=== PATIENT | female | born 1990 | race Caucasian/White ===

== ENCOUNTER → 2023-04-08 | Outpatient (CLI) | payer BC, SELFPAY ==
[2023-04-08 10:08] LABS: hCG Titer Quant., Serum 717 mIU/mL (1-3)
== END | disposition home or self-care (01) ==
LOC: LAB 09:16
PROVIDERS: Referring Provider Registered Nurse; Visit Provider Registered Nurse
DX: N91.2 Amenorrhea, unspecified (principal)
CPT/HCPCS: 36415; 84702

== ENCOUNTER → 2023-04-10 | Outpatient (CLI) | payer BC, SELFPAY ==
[2023-04-10 12:42] LABS: hCG Titer Quant., Serum 1433 mIU/mL (1-3)
== END | disposition home or self-care (01) ==
LOC: LAB 10:52
PROVIDERS: Referring Provider Registered Nurse; Visit Provider Registered Nurse
DX: N91.2 Amenorrhea, unspecified (principal)
CPT/HCPCS: 36415; 84702

== ENCOUNTER → 2023-04-18 | Outpatient (CLI) | payer BC, SELFPAY ==
--- NOTE | 2023-04-18 08:45 | US_ITS ---
STUDY: FIRST TRIMESTER OBSTETRICAL ULTRASOUND REASON FOR EXAM: Female, 32 years old VIABILITY LMP: 03/06/2023 TECHNIQUE: Transvaginal TECHNICAL QUALITY: Adequate. PRIOR ULTRASOUND: None. FINDINGS: There is visualization of a single gestational sac in a normal intrauterine position. The mean sac diameter (MSD) measures 13 mm, indicating an estimated gestational age (EGA) of 6 weeks, 1 days. The gestational sac shape is within normal limits. Hypoechoic areas adjacent to gestational sac consistent with subchorionic hemorrhage (implantation bleed (. There is a visualized yolk sac. The yolk sac measures 3 mm. The placenta is non-visualized. There is visualization of a live embryo. The crown-rump length (CRL) measures 3 mm, indicating an estimated gestational age (EGA) of 6 weeks, 1 days. There is demonstrated cardiac activity with a heart rate of 1:15 bpm. The estimated gestation age (EGA) by LMP is 6 weeks, 1 days. The estimated date of delivery (SALBADOR) by LMP is 12/11/2023. The estimated gestation age (EGA) by US is 6 weeks, 1 days. The estimated date of delivery (SALBADOR) by US is 12/11/2023. The uterus measures 9.5 x 5.4 x 6.8 cm. There is no demonstrated uterine fibroid. The cervix is closed. The right ovary measures 6.5 x 3.9 x 3.2. 3.3 cm oval anechoic mass with increasing transmission of the right ovary consistent with a theca lutein cyst. There is no visualized right adnexal mass or complex lesion. The left ovary measures 2.6 x 2.0 x 1.2. There is no left ovarian cyst. There is no visualized left adnexal mass or complex lesion. There is no fluid in the cul de sac. US/Transvaginal w/Preg US IMPRESSION: Living intrauterine of 6 weeks 1 day as described above. Small subchorionic hemorrhages (implantation bleed). 3.3 cm right ovarian theca lutein cyst. Electronically Signed: Dale Navarro MD at 22:42 EST ,
== END | disposition home or self-care (01) ==
LOC: US 08:43
PROVIDERS: Referring Provider Registered Nurse; Visit Provider Registered Nurse
DX: O36.80X0 Pregnancy with inconclusive fetal viability, not applicable or unspecified (principal); Z87.59 Personal history of other complications of pregnancy, childbirth and the puerperium; Z3A.00 Weeks of gestation of pregnancy not specified
CPT/HCPCS: 76817

== ENCOUNTER → 2023-05-07 | Outpatient (CLI) | payer BC, SELFPAY ==
[2023-05-11 07:07] LABS: Chlamydia By Nucleic Acid AMP Negative (Negative); Gonococcus By Nucleic Acid AMP Negative (Negative)
== END | disposition home or self-care (01) ==
LOC: LABSPEC 15:40
PROVIDERS: Referring Provider Registered Nurse; Visit Provider Registered Nurse
DX: Z34.90 Encounter for supervision of normal pregnancy, unspecified, unspecified trimester (principal); Z3A.00 Weeks of gestation of pregnancy not specified
CPT/HCPCS: 87077; 87086; 87088; 87186; 87491; 87591

== ENCOUNTER → 2023-06-11 | Outpatient (CLI) | payer BC, SELFPAY ==
[2023-06-11 11:30] LABS: Absolute Lymphocyte Count 2.67 X10^3/uL (0.83-4.51); Absolute Neutrophil Count 6.2 X10^3/uL (2.0-7.7); Basophil# 0.04 X10^3/uL; Basophil% 0.4 % (0-1); Eosinophil# 0.12 X10^3/uL; Eosinophils% 1.2 % (0-5); Hemoglobin 13.1 g/dL (12.0-15.0); Lymphocyte # 2.67 X10^3/ul (0.83-4.51); Lymphocyte % 27.7 % (19-41); Mean Corp Hgb Conc 33.6 g/dL (32-36); Mean Corpuscular Hgb 28.4 pg (27.0-32.0); Mean Corpuscular Volume 84.4 fL (81-99); Mean Platelet Vol. 10.8 fl (6.2-12.0); Monocyte# 0.56 X10^3/uL; Monocyte% 5.8 % (0-10); NRBC Flagged by Analyzer 0 % (0-5); Neutrophil # 6.21 X10^3/uL (2.7-7.7); Neutrophil % 64.6 % (47-70); Platelet Count 285 K/mm3 (150-450); RBC Distribution Width CV 12.2 % (11.6-14.6); RBC Distribution Width SD 36.8 fl (35.1-43.9); Red Blood Count 4.62 M/mm3 (4.2-5.4); White Blood Count 9.6 K/mm3 (4.4-11.0)
[2023-06-11 13:13] LABS: HIV - WCH Non-Reactive (Nonreactive); Hepatitis B Surface Antigen Non-Reactive (Nonreactive); Hepatitis C Antibody Non-Reactive (Nonreactive); Rubella IgG Reactive (Nonreactive); Syphilis Antibodies Non-reactive
[2023-06-12 06:08] LABS: V-Zoster IgG (Immunity) 1816 index (Immune >165)
== END | disposition home or self-care (01) ==
PROVIDERS: Referring Provider Registered Nurse; Visit Provider Registered Nurse
DX: Z34.90 Encounter for supervision of normal pregnancy, unspecified, unspecified trimester (principal); Z78.9 Other specified health status; Z3A.00 Weeks of gestation of pregnancy not specified
CPT/HCPCS: 36415; 85025; 86703; 86762; 86780; 86787; 86803; 86850; 86900; 86901; 87340

== ENCOUNTER → 2023-09-12 | Outpatient (CLI) | payer BC, SELFPAY ==
[2023-09-12 12:29] LABS: Absolute Lymphocyte Count 1.99 X10^3/uL (0.83-4.51); Absolute Neutrophil Count 5.6 X10^3/uL (2.0-7.7); Basophil# 0.03 X10^3/uL; Basophil% 0.4 % (0-1); Eosinophil# 0.09 X10^3/uL; Eosinophils% 1.1 % (0-5); Hematocrit 38.2 % (37-47); Hemoglobin 12.7 g/dL (12.0-15.0); Lymphocyte # 1.99 X10^3/ul (0.83-4.51); Lymphocyte % 24.2 % (19-41); Mean Corp Hgb Conc 33.2 g/dL (32-36); Mean Corpuscular Volume 87.2 fL (81-99); Mean Platelet Vol. 10.5 fl (6.2-12.0); Monocyte# 0.44 X10^3/uL; Monocyte% 5.4 % (0-10); NRBC Flagged by Analyzer 0 % (0-5); Neutrophil # 5.62 X10^3/uL (2.7-7.7); Neutrophil % 68.3 % (47-70); Platelet Count 239 K/mm3 (150-450); RBC Distribution Width CV 13.2 % (11.6-14.6); RBC Distribution Width SD 41.3 fl (35.1-43.9); Red Blood Count 4.38 M/mm3 (4.2-5.4); White Blood Count 8.2 K/mm3 (4.4-11.0)
[2023-09-12 13:26] LABS: HIV - WCH Non-Reactive (Nonreactive); Syphilis Antibodies Non-reactive
[2023-09-12 13:29] LABS: Glucose Challenge Gest 1H 50g 139 mg/dL (70-140)
== END | disposition home or self-care (01) ==
LOC: LAB 11:35
PROVIDERS: Referring Provider Obstetrics & Gynecology; Visit Provider Obstetrics & Gynecology
DX: O09.90 Supervision of high risk pregnancy, unspecified, unspecified trimester (principal); Z13.1 Encounter for screening for diabetes mellitus; Z3A.00 Weeks of gestation of pregnancy not specified
CPT/HCPCS: 36415; 82950; 85025; 86703; 86780

== ENCOUNTER → 2023-09-29 | Outpatient (CLI) | payer BC, SELFPAY ==
[2023-09-29 07:41] LABS: Glucose GTT-Gestation. Fasting 90 mg/dL (<105)
[2023-09-29 09:13] LABS: Glucose GTT-Gestational 1 Hr 195 mg/dL (<190)
[2023-09-29 10:13] LABS: Glucose GTT-Gestational 2 Hr 175 mg/dL (<165)
[2023-09-29 10:37] LABS: Glucose GTT-Gestational 3 Hr 97 L (<145)
== END | disposition home or self-care (01) ==
LOC: LAB 06:55
PROVIDERS: Referring Provider Obstetrics & Gynecology; Visit Provider Obstetrics & Gynecology
DX: Z13.1 Encounter for screening for diabetes mellitus (principal)
CPT/HCPCS: 36415; 82951; 82952

== ENCOUNTER → 2023-10-17 | Outpatient (CLI) | payer BC, SELFPAY ==
--- NOTE | 2023-10-17 09:43 | US_ITS ---
INDICATION: wellbeing, placental lakes, 32 Weeks EXAMINATION: Ultrasound US OB Follow-Up TECHNIQUE: Transabdominal pelvic ultrasound was performed with grayscale color flow and M-mode Doppler. COMPARISON: None. LMP: March 06, 2023 correlating with 32 weeks 1 day gestation and estimated delivery date December 11, 2023. FINDINGS: Single live intrauterine with heart rate 145 bpm. Current cephalic presentation. Placenta fundal, grade 3 with numerous placental lakes of variable size. No evidence of abruption or previa. YAMILE 18.3 cm with deepest vertical pocket 6.0 cm. Biparietal diameter 8.0 cm 32 weeks 2 days Head circumference 29.5 cm 32 weeks 4 days Abdominal circumference 27.9 cm 32 weeks 0 days Femur length 6.0 cm 31 weeks 3 days Composite ultrasound age 32 weeks 0 days correlating with December 12, 2023 delivery date Estimated weight 1862 g +/- 279 g US/OB Limited With Biometrics IMPRESSION: Single live intrauterine with normal heart rate. Fundal grade 3 placenta with multiple placental lakes. Electronically Signed: Allen Castellanos MD at 22:52 EDT Reading Location ID and State: [facility] / [place] Tel , Service support ,
== END | disposition home or self-care (01) ==
PROVIDERS: Referring Provider Nurse Practitioner Women's Health; Visit Provider Nurse Practitioner Women's Health
DX: O43.109 Malformation of placenta, unspecified, unspecified trimester (principal); Z3A.00 Weeks of gestation of pregnancy not specified
CPT/HCPCS: 76816

== ENCOUNTER → 2023-11-14 | Outpatient (CLI) | payer BC, SELFPAY ==
--- NOTE | 2023-11-14 09:42 | US_ITS ---
STUDY: SECOND AND THIRD TRIMESTER OBSTETRICAL ULTRASOUND REASON FOR EXAM: Female, 32 years old wellbeing, placental lakes, 36 Weeks LMP: March 06, 2023. TECHNIQUE: Transabdominal TECHNICAL QUALITY: Adequate. PRIOR ULTRASOUND: Comparison is made with prior examination dated October 17, 2023. FINDINGS: There is a single intrauterine fetus. The fetus is in a cephalic presentation. There is demonstrated cardiac activity with a heart rate of 152 bpm. There is a normal amniotic fluid volume. The largest amniotic fluid pocket measures 6.3 cm. The amniotic fluid index (YAMILE) is 15.1 cm. The placenta is fundal in location. There are Grade 2 placental changes. The cervix was not measured due to the head position.. The adnexal regions are not visualized. BIOMETRY: BPD: 8.81 cm: 35 weeks, 4 days HC: 32.15 cm: 36 weeks, 2 days AC: 31.68 cm: 35 weeks, 4 days FL: 6.69 cm: 34 weeks, 3 days CI: 79.4% FL/BPD: 75.9% FL/HC: FL/AC: 21.1% HC/AC: 1.02 age by current US: 35 weeks, 4 days. SALBADOR by current US: December 15, 2023. Estimated weight: 2670 grams, +/- 400 grams, 32 %. age by prior US: 36 weeks, 0 days. SALBADOR by prior US: December 12, 2023. Age by LMP: 36 weeks, 1 days. SALBADOR by LMP: December 11, 2023. US/OB Limited With Biometrics IMPRESSION: Single live intrauterine gestation with a mean gestational age of 35 weeks and 4 days. The measurements obtained today fall within normal expected range. Electronically Signed: Ted Vasquez MD at 13:49 EDT ,
== END | disposition home or self-care (01) ==
PROVIDERS: Referring Provider Nurse Practitioner Women's Health; Visit Provider Nurse Practitioner Women's Health
DX: O43.109 Malformation of placenta, unspecified, unspecified trimester (principal); Z3A.00 Weeks of gestation of pregnancy not specified
CPT/HCPCS: 76816

== ENCOUNTER 2023-12-10 07:18 | Inpatient (IN) | payer BC, SELFPAY ==
[2023-12-10] VITALS (52 sets, daily range): BP systolic 94–122; BP diastolic 53–73; PULSE 59–82; RESP 16; TEMP 36.3–37.1; O2SAT 96–100; BMI 24.2
--- NOTE | 2023-12-10 08:00 | PCM.HP.OB ---
HPI - General General Date of Admission: 12/10/23 Date of Service: 12/10/23 HPI Narrative ZOLTAN ANN, is a 33 F 39.6 weeks gestation who presents for induction of labor Maternal Data Information SALBADOR Calculator Estimated Delivery Date Method Current WG Current Estimate 12/11/23 LMP (Certain) 39w 6d Final SALBADOR: 12/11/23 Final SALBADOR Source: US >20 weeks Gestational age: 39.6 weeks PFSH PFSH Medical History no medical history no medical history Home Medications ?Medication ?Instructions ?Recorded ?Last Taken ?Type calcium carb-vit P1-cmtrngndt-nfqs 1 tab PO ONCE PRN 04/25/23 Unknown History 333 mg-200 unit-133 mg-5 mg tablet colostrum, bovine 3 gram-35 kcal/7 ea PO 04/25/23 Unknown History gram oral powder packet omega-3 240 pn-fan-lgf-cod liver cap PO 04/25/23 Unknown History oil 1,000 mg-vit A-vit D3 capsule (cod liver oil) vitamins no.163-iron tab PO 04/25/23 Unknown History bis-gly 20 mg-folate no.10 1 mg tablet (PNV Tabs 20-1) fluocinolone 0.01 % topical 1 applic topical BID #60 mL 06/24/23 Unknown Rx solution (Synalar) fluocinolone 0.01 % topical cream 1 applic topical BID #60 grams 06/26/23 Unknown Rx docusate sodium 100 mg capsule 100 mg PO DAILY 07/25/23 Unknown History (Colace) blood sugar diagnostic (Blood #120 ea 09/29/23 Unknown Rx Glucose Test strips) blood-glucose meter #1 ea 09/29/23 Unknown Rx lancets #200 ea 09/29/23 Unknown Rx Allergy/AdvReac Type Severity Reaction Status Date / Time vancomycin Allergy Severe Anaphylaxis Verified 12/05/23 10:18 Environmental Allergies: Allergy Intermediate Rash Verified 12/05/23 10:18 Uncoded cefaclor (From Ceclor) Allergy Mild Other Verified 12/05/23 10:18 Family History Mother Gestational diabetes Surgical History [place] teeth extracted Social History adopted: No household members: spouse and children number of children: 3 current occupational status: unemployed pets and animals: No history of recent travel: Yes ([place]) out of state: Yes out of country: No sexually active: Yes Smoking Status: Never smoker alcohol intake: current alcohol intake frequency: holidays/special occasions only details: Not while substance use type: does not use well-balanced diet: daily or most days caffeine: Yes Type: coffee Number of servings: 1 eating out: rarely or never during the past year weight has: remained stable what type of physical activity do you participate in: other details: Tia Chi, pilates frequency: 1-2 times per week duration: 15-30 minutes/day elvia/church: [employer] seatbelt use: always do you feel safe at home: Yes additional social history: Barry-yajairarshar History 6 Elective abortions Hx Para 3 Spontaneous abortions 2 Hx # Term Pregnancies Ectopic pregnancies Hx # Pregnancies Multiple births # of living children 3 Past Pregnancies Del. Date Name GA/Weeks Outcome Route Bth Weight Infant Gen Labor Lgth Anesthesia Del Locatn Provider FOB 06/21/15 Yovany 39 live - full term 8#4oz Male 72 hr none GORGE Ragsdale 02/28/17 Arnie 39 live - full term 8#4oz Male 8 HR epidural GORGE Oliva 03/27/20 Curry 40 live - full term 7#3oz Female 8 HR epidural GORGE Oliva Delivery Date: 02/28/17 Last Updated by: Yessy Bautista IOL Delivery Date: 03/27/20 Last Updated by: Yessy Bautista iol Visit Details Expected Delivery Route/Plan Labor Preferences- CB/BF classes: no labor support person: Barry labor intervention preferences: [] pain management options preferred: epidural if needed cut cord/dad catch: maybe : yes PP control planned: discussed discussed possible routes of delivery and associated risks: [] special requests: does not want baby in the room with her at night if possible. states that she won't sleep if the baby is with her and prefers he goes to the nursery. We have discussed that we do not have a nursery but there is a chance that the nurses can keep an eye on the baby if no emergencies while she sleeps for a few hours. Plans Covid status: [] Flu vaccine: given Tdap vaccine: [] Rhogam: NA LARC form signed: yes Problem list reviewed and updated with the most current plan of care details and appropriate orders placed. Relevant counseling for the gestational age provided. Continue routine care and follow up unless otherwise noted in visit notes/problem list details OB Flowsheet Initial Weight: Not Recorded Date <del>?</del> EGA Weight BP Urine Prot <del>?</del> Glucose FHR FuHt Pres Dilation <del>?</del> Effaced St Visit Note 05/07/23 <del>?</del> 8w 6d 111 lb 111/78 <del>?</del> 185 <del>?</del> LC- CRL con with LMP. YOLI smaller now 14mm, declines nipt. 05/30/23 <del>?</del> 12w 1d 113 lb 118/72 Negative <del>?</del> Negative 164 <del>?</del> JV- no lof, vaginal bleeding, or cramping. anatomy scan ordered. no complaints other than pain in her left heal and right tumb joint. 06/24/23 <del>?</del> 15w 5d 115 lb 2 oz 114/73 Negative <del>?</del> Negative 158 <del>?</del> kw-no vb/cramping. anatomy US scheduled. Flu shot today. 07/25/23 <del>?</del> 20w 1d 119 lb 102/65 <del>?</del> 155 <del>?</del> SM- no vb lof good fm no regualr ctx. SM- no vb lof good fm no regualr ctx. discussed lichen scleorsus, hip pain, and placental lakes. 08/22/23 <del>?</del> 24w 1d 123 lb 8 oz 110/60 Negative <del>?</del> Negative 154 24 <del>?</del> JV- gct ordered. pt is going on vacation in a month. no lof, vaginal bleeding, or dec fm. 09/15/23 <del>?</del> 27w 4d 124 lb 4 oz 112/64 Negative <del>?</del> Negative 157 28 <del>?</del> MH-No VB, LOF. Good FM. Diet reviewed. 3 hr GTT sched. Larc done. 09/30/23 <del>?</del> 29w 5d 125 lb 8 oz 110/64 Negative <del>?</del> Negative 154 29 Transverse <del>?</del> MH-No VB, LOF. Good FM. Very upset about dx of GDM. Tested for first time this AM and was 80. Reassured good reading. Discussed testing times, diet. Will see dietitian. Enc to keep diary food and readings. 10/17/23 <del>?</del> 32w 1d 125 lb 8 oz 112/72 Negative <del>?</del> Negative 145 32 Cephalic <del>?</del> JV- fasting levels 70's-80's, 2 hrs. pp are 80-100. no lof vaginal bleeding, or dec fm. us today -official results are pending. The placental santillan is stable. growth is normal. 10/30/23 <del>?</del> 34w 0d 124 lb 103/67 <del>?</del> 135 34 Cephalic <del>?</del> Sm- no vb lof good fm no regular ctx BS controlled 11/13/23 <del>?</del> 36w 0d 126 lb 2 oz 100/67 Negative <del>?</del> Negative 135 36 Cephalic <del>?</del> KW- no vb/lof/ctx. good fm. declines vag exam today. KW- no vb/lof/ctx. good fm. declines vag exam today. GBS in urine KW- no vb/lof/ctx. good fm. declines vag exam today. GBS in urine. 11/21/23 <del>?</del> 37w 1d 127 lb 106/55 Negative <del>?</del> Negative 134 36 Cephalic 2 <del>?</del> -3 kw- no vb/lof/ctx. good fm no concerns today. growth us normal 11/28/23 <del>?</del> 38w 1d 126 lb 4 oz 115/80 Negative <del>?</del> Negative 140 38 Cephalic 2.5 <del>?</del> 80 -2 JV- no lof, vaginal bleeding, or dec fm. glucose levels are stable. planning IOL on December 09. pt undecided if wants membrane strip next week. 12/05/23 <del>?</del> 39w 1d 126 lb 123/77 Negative <del>?</del> Negative 140 39 Cephalic 2 <del>?</del> SM- no vb lof good fm no regular ctx BS controlled. NST FHR Rate Baby A Baseline: 135 Variability:: Moderate Accelerations:: 15 x 15 Decelerations:: None NST Reactive:: Yes FHR Category:: Category I Uterine Activity:: irregular ROS Constitutional Constitutional: Denies change in weight, fatigue, fever(s), headache(s), poor appetite or weakness Eyes Eyes: Denies blurry vision, change in vision, floaters, seeing flashes or spots in vision ENT HEENT: Denies dizziness, headache(s), loss taste/smell or sore throat Cardiovascular Cardiovascular: Denies chest pain, dizziness, dyspnea, irregular heart rhythm, lightheadedness, palpitations or rapid heart rate Respiratory/Chest Respiratory/Chest: Denies change in mental status, chest tightness, cough, dyspnea or breast pain Gastrointestinal Gastrointestinal: Denies anorexia, chewing difficulty, constipation, diarrhea or weight changes Genitourinary Genitourinary: Denies difficulty urinating, dysuria, flank pain, genital pain, urinary frequency or urinary urgency Musculoskeletal Musculoskeletal: Denies back pain, difficulty walking, extremity pain, joint pain, muscle cramps or muscle weakness Integumentary Integumentary: Denies lesions or unusual bruising Neurologic Neurologic: Denies abnormal movements, abnormal speech, dizziness, numbness, seizure-like activity, syncope or weakness Psychiatric Psychiatric: Denies behavioral changes, change in appetite, confusion, depression, homicidal ideation, suicidal ideation or suicidal thoughts Endocrine Endocrinology: Denies excessive sweating, polydipsia or polyuria Hematologic/Lymphatic Hematologic/Lymphatic: Denies anemia Allergic/Immunologic Allergic/Immunologic: Denies itchy eyes, lip swelling, throat swelling, tongue swelling or wheezing Vital Signs Vital Signs Vital Signs: 12/10/23 07:33 12/10/23 07:33 12/10/23 07:36 Temperature Temperature Source Temporal Pulse Rate 77 Respiratory Rate Blood Pressure 114/65 BP Systolic 114 BP Diastolic 65 12/10/23 07:36 12/10/23 07:36 Temperature 98.0 F Temperature Source Pulse Rate Respiratory Rate 16 Blood Pressure BP Systolic BP Diastolic Weight Weight: 128 lb 1.417 oz Body Mass Index (BMI) 24.2 Physical Exam Const alert, oriented x3 and no apparent distress General Appearance: cooperative Orientation / Consciousness: awake HEENT normocephalic Neck full ROM Lymph Lymphatic: no lymphadenopathy noted Chest inspection of chest normal Resp normal respiratory effort and normal air movement Effort and Inspection: able to speak in complete sentences and symmetric chest movement GI soft to palpation and non-tender Inspection: gravid Palpation: soft; Negative for tender external exam normal Manual OB Exam: dilated 4, effaced 80 and station -1 Back/Spine normal to inspection Extremity normal to inspection and full ROM Skin no rashes or lesions noted Psych mental status grossly normal Appearance: grossly normal Speech: normal speech Labs Labs Labs: Blood Type A POSITIVE Antibody Screen NEGATIVE Hct 38.1 % (37-47) Hgb 13.1 g/dL (12.0-15.0) Obstetrics Ultrasound Syphilis Total Ab Non-reactive VZV IgG Antibody 1816 index (Immune >165) Rubella IgG Antibody Reactive (Nonreactive) Hep Bs Antigen Non-Reactive (Nonreactive) Hepatitis C Antibody Non-Reactive (Nonreactive) Chlamydia DNA (ALEX) Negative (Negative) N.gonorrhoeae DNA (ALEX) Negative (Negative) HIV 1&2 Antibody Non-Reactive (Nonreactive) Glucose 1 Hr 50 gm 139 mg/dL (70-140) Gest Glucose Tolerance MG/DL Assessment & Plan (1) Gestational diabetes: QUALIFIERS: Gestational diabetes mellitus control: diet-controlled Trimester: third trimester Qualified Code(s): O24.410 - Gestational diabetes mellitus in , diet controlled COMMENT: BS testing fasting & 2 Hr PP, general warehouse associate consultation 36w growth US(EFW 32%, AC 44%). Very emotionally upset by this PLAN: Patient presents IOL, plan management for with pitocin/AROM. Pain management: plans epidural. GBS positive. Management of any complications: none I have reviewed the [facility] and made any clinically relevant updates. Dr Galvan aware of and agrees with plan and assessment. (2) Encounter for induction of labor: (3) Placental abnormality: QUALIFIERS: Trimester: third trimester Qualified Code(s): O43.103 - Malformation of placenta, unspecified, third trimester COMMENT: placental lakes. recommend growth US at 32 and 36 weeks, reviewed with patient. (4) Positive GBS test: COMMENT: GBS in urine. treat in labor. (5) Lichen sclerosus: COMMENT: stopped Clobetasol use- will use hydrocortisone for itching PRN (6) Hx of depression, currently : COMMENT: last ; stable (7) Supervision of high-risk : QUALIFIERS: Trimester: third trimester Qualified Code(s): O09.93 - Supervision of high risk , unspecified, third trimester COMMENT: PRR , SALBADOR 12/11/23, Arnie Schultz Evangeline Barry (8) : QUALIFIERS: Weeks of gestation: 39 weeks Qualified Code(s): Z3A.39 - 39 weeks gestation of COMMENT: declined genetic ntd & carrier testing. anatomy resolved. Charges/Coding Multi Select Codes Urinary/Genital Urinary/Genital CPT Codes: No Charge
[2023-12-10] MEDS: Penicillin G Pot 5,000,000 UNITS in 0.9% Normal Saline (100mL MB+) 100 ML 150 UNITS IV (08:09)
[2023-12-10 08:15] LABS: Absolute Neutrophil Count 5.2 X10^3/uL (2.0-7.7); Basophil# 0.03 X10^3/uL; Basophil% 0.4 % (0-1); Eosinophil# 0.06 X10^3/uL; Eosinophils% 0.7 % (0-5); Hematocrit 38.1 % (37-47); Hemoglobin 13.1 g/dL (12.0-15.0); Lymphocyte % 27.3 % (19-41); Mean Corp Hgb Conc 34.4 g/dL (32-36); Mean Corpuscular Hgb 29.4 pg (27.0-32.0); Mean Corpuscular Volume 85.6 fL (81-99); Mean Platelet Vol. 11.4 fl (6.2-12.0); Monocyte# 0.52 X10^3/uL; Monocyte% 6.5 % (0-10); NRBC Flagged by Analyzer 0 % (0-5); Neutrophil % 64.5 % (47-70); Platelet Count 206 K/mm3 (150-450); RBC Distribution Width CV 13.2 % (11.6-14.6); RBC Distribution Width SD 40.7 fl (35.1-43.9); Red Blood Count 4.45 M/mm3 (4.2-5.4); White Blood Count 8.1 K/mm3 (4.4-11.0)
[2023-12-10] MEDS: Oxytocin 15 Units/NS 250ml 15 UNITS/250 ML IV.SOLN 2 UNITS IV (08:23)
[2023-12-10] MEDS: Lactated Ringers 1,000 ML 50 ML IV (08:23)
[2023-12-10 09:38] LABS: Bedside Glucose 84 mg/dL (74-106)
[2023-12-10 09:56] LABS: Bedside Glucose 80 mg/dL (74-106)
[2023-12-10] MEDS: fentaNYL-bupivacaine (epidural) 100 ML BAG EPIDURAL (10:49)
[2023-12-10] MEDS: Penicillin G 3,000,000 Units 50 ML 100 UNITS IV (12:14)
--- NOTE | 2023-12-10 12:35 | PN_ITS ---
Progress Note comfortable with epidural current tracing: FHT: 130 Moderate variability reactive no decelerations category I tracing [place]: 2-4 Contractions Membranes: AROM 1230 clear SVE:6/80/-1 A/P: Continue with position changes Titrate pitocin per protocol Epidural per anesthesia PCN for GBS prophylaxis Anticipate Dr Hansen aware of above assessment and agrees with plan of care Assessment & Plan Assessment/Plan (1) Encounter for induction of labor: (2) Gestational diabetes: QUALIFIERS: Gestational diabetes mellitus control: diet-controlled Trimester: third trimester Qualified Code(s): O24.410 - Gestational diabetes mellitus in , diet controlled (3) Placental abnormality: QUALIFIERS: Trimester: third trimester Qualified Code(s): O43.103 - Malformation of placenta, unspecified, third trimester (4) Positive GBS test: (5) Lichen sclerosus: (6) Hx of depression, currently : (7) Supervision of high-risk : QUALIFIERS: Trimester: third trimester Qualified Code(s): O09.93 - Supervision of high risk , unspecified, third trimester (8) : QUALIFIERS: Weeks of gestation: 39 weeks Qualified Code(s): Z3A.39 - 39 weeks gestation of Multi Select Codes Urinary/Genital Urinary/Genital CPT Codes: No Charge
--- NOTE | 2023-12-10 15:29 | OP.PCM_ITS ---
Assessment & Plan (1) Vaginal delivery: COMMENT: KW 39.6 Breonna Zelaya (2) Encounter for induction of labor: (3) Gestational diabetes: QUALIFIERS: Gestational diabetes mellitus control: diet-controlled Trimester: third trimester Qualified Code(s): O24.410 - Gestational diabetes mellitus in , diet controlled COMMENT: BS testing fasting & 2 Hr PP, web pressman consultation 36w growth US(EFW 32%, AC 44%). Very emotionally upset by this (4) Placental abnormality: QUALIFIERS: Trimester: third trimester Qualified Code(s): O43.103 - Malformation of placenta, unspecified, third trimester COMMENT: placental lakes. recommend growth US at 32 and 36 weeks, reviewed with patient. (5) Positive GBS test: COMMENT: GBS in urine. treat in labor. (6) Lichen sclerosus: COMMENT: stopped Clobetasol use- will use hydrocortisone for itching PRN (7) Hx of depression, currently : COMMENT: last ; stable (8) Supervision of high-risk : QUALIFIERS: Trimester: third trimester Qualified Code(s): O09.93 - Supervision of high risk , unspecified, third trimester COMMENT: PRR , SALBADOR 12/11/23, breonna zelaya VANNESA Pedroza, Arnie, Robertson Barry (9) : QUALIFIERS: Weeks of gestation: 39 weeks Qualified Code(s): Z3A.39 - 39 weeks gestation of COMMENT: declined genetic ntd & carrier testing. anatomy resolved. Maternal Data Information SALBADOR Calculator Estimated Delivery Date Method Current WG Current Estimate 12/11/23 LMP (Certain) 39w 6d Final SALBADOR: 12/11/23 Final SALBADRO Source: US >20 weeks Gestational age: 39.6 weeks Vaginal Delivery Maternal Presentation Maternal Presentation: Elective Induction Maternal Presentation: Progressed well to 10cm dilated and made steady progress with effective maternal pushing. Delivered the head in BRENT presentation. The head was delivered atraumatically and a tight nuchal cord was identified, unable to reduce over infants head and delivered through. The anterior and posterior shoulders delivered without complication followed by the rest of the and the was placed on the maternal abdomen. Delayed cord clamping was employed for approximately 3 minutes. Cord was clamped and cut and gentle traction was applied to the cord and the placenta delivered spontaneously. Immediately following, it was noted to be intact with a 3 vessel cord. The perineum and vagina were inspected and noted to have a first degree laceration which was repaired with 3-0 Vicryl in the usual fashion. EBL was 100cc. Patient and tolerated delivery well. Apgars 8/9. Dr Hansen notified of vaginal delivery and orders reviewed. Physician agrees with current plan of care. Type of Induction: Pitocin Operative Information Date of Procedure: 12/10/23 Pre-Operative Diagnosis: See AP comments Post-Operative Diagnosis: Same Surgery / Procedure Performed: Spontaneous Vaginal Delivery supervisory investigative specialist #1: Aleena Nugent Type of Anesthesia: Epidural Estimated Blood Loss: 100 Time of Delivery: 14:23 Findings Presentation: Vertex Amniotic Membrane Rupture Type: Artificial Amniotic Fluid Description: Clear Placental Delivery Description: Spontaneous Placenta Disposition: [facility] Cord Vessel Description: 3 Vessels Cord Entanglement: Around neck x 1, tight Infant A Gender: Male (1 minute): 9 (5 minute): 9 Delayed Cord Clamping: Yes Post Vaginal Delivery Medications Given After Delivery: IV Pitocin Episiotomy Description: None Laceration: 1st degree Complication Complications: None Multi Select Codes Urinary/Genital Urinary/Genital CPT Codes: 96197 Vaginal Delivery [facility]
[2023-12-10 15:51] LABS: Bedside Glucose 78 mg/dL (74-106)
[2023-12-10 15:51] LABS: Bedside Glucose 142 mg/dL (74-106)
[2023-12-10 15:51] LABS: Bedside Glucose 67 mg/dL (74-106)
[2023-12-10 15:51] LABS: Bedside Glucose 63 mg/dL (74-106)
[2023-12-10] MEDS: Acetaminophen 500 MG Tablet 1000 MG PO ×2 (16:21→23:48)
[2023-12-10] MEDS: Oxytocin 15 Units/NS 250ml 15 UNITS/250 ML IV.SOLN 83 UNITS IV (17:20)
[2023-12-10] MEDS: Ibuprofen 600 MG Tablet PO (22:10)
[2023-12-11 04:31] VITALS: BP 104/59; PULSE 62
[2023-12-11 04:38] VITALS: BP 104/59; PULSE 64; RESP 16; TEMP 36.9; O2SAT 97
[2023-12-11] MEDS: Ibuprofen 600 MG Tablet PO ×2 (04:45→11:14)
--- NOTE | 2023-12-11 07:03 | PCM.PN.OB ---
Subjective Subjective Patient doing well without complaints. Tolerating PO. Ambulating and voiding without difficulty. feeding well. Denies chest pain, shortness of breath, calf pain/swelling, fevers, chills, lightheadedness. Objective Data Objective Data Vital Signs: Vital Signs Temp Pulse Resp BP Pulse Ox O2 Del Method 98.4 F 64 16 104/59 L 97 Room Air 12/11/23 04:38 12/11/23 04:38 12/11/23 04:38 12/11/23 04:38 12/11/23 04:38 12/11/23 04:38 Oxygen Delivery Method Room Air Weight: 128 lb 1.417 oz Body Mass Index (BMI) 24.2 Intake & Output: Intake and Output for Last 24 Hours 12/09/23 12/10/23 12/11/23 23:59 23:59 23:59 Intake Total 1655.00 / 1655.00 Output Total 1050 / 1050 300 / 300 Balance 605.00 / 605.00 -300 / -300 Lab / Micro Data 12/10/23 08:00 Labs: Laboratory Results - last 24 hr 12/10/23 08:00: WBC 8.1, RBC 4.45, Hgb 13.1, Hct 38.1, MCV 85.6, MCH 29.4, MCHC 34.4, RDW Std Deviation 40.7, RDW Coeff of Johana 13.2, Plt Count 206, MPV 11.4, Immature Gran % (Auto) 0.600, Neut % (Auto) 64.5, Lymph % (Auto) 27.3, [place] % (Auto) 6.5, Eos % (Auto) 0.7, Baso % (Auto) 0.4, Absolute Neuts (auto) 5.2, Absolute Lymphs (auto) 2.20, Nucleated RBC % 0, Blood Type A POSITIVE, Antibody Screen NEGATIVE 12/10/23 08:27: POC Glucose 84 12/10/23 09:32: POC Glucose 80 12/10/23 13:10: POC Glucose 63 L 12/10/23 13:28: POC Glucose 67 L 12/10/23 14:04: POC Glucose 78 12/10/23 15:31: POC Glucose 142 H ROS Constitutional Constitutional: Reports systems reviewed and no addt'l complaints, except as documented Cardiovascular Cardiovascular: Reports systems reviewed and no addt'l complaints, except as documented Respiratory/Chest Respiratory/Chest: Reports systems reviewed and no addt'l complaints, except as documented Gastrointestinal Gastrointestinal: Reports systems reviewed and no addt'l complaints, except as documented Physical Exam Const alert, oriented x3 and no apparent distress HEENT Head and Scalp: atraumatic Resp normal respiratory effort GI soft to palpation and non-tender Bimanual Exam - Vag & Uterus: uterus non-tender Uterus Palpation: uterus fundus firm (below Umbilicus) Assessment & Plan (1) Vaginal delivery: COMMENT: KW 39.6 Boy Carmelo PLAN: Plan s/p PPD # 1 1. routine post delivery care 2. breast feeding- support given 3. rh positive 4. rubella immune
--- NOTE | 2023-12-11 07:04 | DCINST_ITS ---
Discharge Instructions Diet Discharge Diet: No restrictions Activity Discharge Activity: Return to Normal Activity, May Not Drive (while taking narcotic pain medications.) and May Shower May resume sexual activity in: 4-6 weeks Dressing / Incision Call your doctor if your incision/area has: Continuous Slow Oozing, Sudden Increased Bleeding, Increased Pain/ Swelling, Increased Redness and Foul Smelling Discharge Follow Up Care Please Follow Up With: Letha Hansen MD When: Call [phone] to make an appointment with your doctor in 6 weeks. If you had elevated blood pressure or 4th degree laceration, you will need to be seen in 2 weeks. Test Results: Test results from this visit will be discussed in further detail at your follow- up appointment, if applicable. Discharge Plan Admission Admit Date/Time: 12/10/23 07:18 Attending Provider: Aleena Nugent Primary Care Provider: Care Physician,Shi Primary Discharge Orders/Prescriptions Prescriptions: No Action PNV Tabs 20-1 20 mg iron- 1 mg tablet 1 tab PO DAILY calcium carb-D3-mag [id number] [phone] wi-[id number]-mg tablet 1 tab PO ONCE PRN (Reason: supplement) Rx Instructions: administer with a meal colostrum, bovine 3 gram-35 kcal /7 gram powder in packet 1 ea PO DAILY fluocinolone [Synalar] 0.01 % solution 1 applic topical BID Qty: 60 0RF Rx Instructions: only for use when symptomatic docusate sodium [Colace] 100 mg capsule 100 mg PO DAILY fluocinolone 0.01 % cream 1 applic topical BID Qty: 60 0RF (DME) Blood Glucose Test Strip See Rx Instructions .MEDSUPPLY Qty: 120 5RF Rx Instructions: As directed-fasting & 2 hr post meals (DME) blood-glucose meter Misc See Rx Instructions .MEDSUPPLY Qty: 1 0RF Rx Instructions: As directed- Test fasting and 2 hours after meals (DME) lancets Misc See Rx Instructions .MEDSUPPLY Qty: 200 5RF Rx Instructions: As directed-fasting & 2 hr post meals Referrals / Follow Up: Care Physician,No Primary [Primary Care Provider] - Disposition Disposition (needs filled in before D/C Order can be placed): Home, Self Care
[2023-12-11] MEDS: Acetaminophen 500 MG Tablet 1000 MG PO ×2 (08:10→15:52)
[2023-12-11 08:12] VITALS: BP 114/55; PULSE 65
[2023-12-11 08:16] VITALS: BP 114/55; PULSE 65; RESP 16; TEMP 36.3
[2023-12-11 12:51] VITALS: BP 103/50; PULSE 77; RESP 14; TEMP 36.9
[2023-12-11 14:13] LABS: Syphilis Antibodies Non-reactive
[2023-12-11] MEDS: Senna/Docusate Sodium 1 Tablet PO (15:52)
--- NOTE | 2023-12-15 12:34 | NURSING ---
Follow up phone call attempted, no answer, voicemail left with phone number if patient has any questions or concerns.
== END 2023-12-11 16:45 | disposition home or self-care (01) | DRG 807 ==
PROVIDERS: Admitting Provider Obstetrics & Gynecology; Referring Provider Advanced Practice Midwife; Visit Provider Advanced Practice Midwife
DX: O24.410 Gestational diabetes mellitus in pregnancy, diet controlled (principal); Z37.0 Single live birth; L90.0 Lichen sclerosus et atrophicus; O69.1XX0 Labor and delivery complicated by cord around neck, with compression, not applicable or unspecified; O70.0 First degree perineal laceration during delivery; O99.72 Diseases of the skin and subcutaneous tissue complicating childbirth; O99.820 Streptococcus B carrier state complicating pregnancy; Z3A.39 39 weeks gestation of pregnancy
CPT/HCPCS: 59025; 59050; 82962; 85025; 86780; 86850; 86900; 86901; 99221; J7120; G0378

== ENCOUNTER → 2025-01-28 | Outpatient (CLI) | payer BC, SELFPAY ==
[2025-02-01 20:08] LABS: HPV APTIMA, High Risk Negative (Negative)
== END | disposition home or self-care (01) ==
LOC: LABSPEC 10:38
PROVIDERS: Referring Provider Advanced Practice Midwife; Visit Provider Advanced Practice Midwife
DX: Z12.4 Encounter for screening for malignant neoplasm of cervix (principal)
CPT/HCPCS: 87624; 88175; G0145